=== PATIENT | female | born 1970 | race Caucasian/White ===

== ENCOUNTER 2016-09-09 07:52 | Day surgery (SDC) | payer OTHER ==
[~2016-09-09 07:52] MED LIST: Cyanocobalamin (Vitamin B12) 1,000 MCG/ML SDV IM ONE; Glycopyrrolate 0.2 MG/ML 2 ML SYRINGE IVPUSH ONE; Lactated Ringers 1,000 ML IV ONE; MVI, Adult with Vitamin K 10 ML, Thiamine 200 MG, Chromium/Copper/Mang/Selen/Zn 1 ML in... IV ONE
[2016-09-09] MEDS ORDERED: fentaNYL 100 MCG/2 ML SDV ONE (08:15)
[2016-09-09] MEDS ORDERED: Midazolam 1 MG/ML 2 ML SDV ONE (08:15)
[2016-09-09] MEDS ORDERED: Propofol 200 MG/20 ML SDV ONE (08:15)
[2016-09-09 12:01] VITALS: BP 130/84
--- NOTE | 2016-09-18 15:07 | OR ---
DATE OF PROCEDURE: 09/09/2016 PREOPERATIVE DIAGNOSIS: Dysphasia and epigastric discomfort status post Addie-en-Y gastric bypass. POSTOPERATIVE DIAGNOSIS: Healing marginal ulcer status post Addie-en-Y gastric bypass. OPERATIVE PROCEDURE: Upper GI endoscopy with biopsies of gastric pouch for CLOtest. ANESTHESIA: IV sedation. INDICATION FOR PROCEDURE: A 46-year-old status post Addie-en-Y gastric bypass in 2002. She recently has been noting some dysphagia referable to distal esophagus along with some epigastric discomfort. I had already started omeprazole and then in late July was seen and started on Protonix 40 mg daily per Chanel Seals PA-C. Since that time, the dysphasia has decreased, but she also was having some epigastric discomfort, especially with certain foods. The plan is to proceed with upper GI endoscopy with biopsies as indicated. Potential risks including bleeding and perforation were discussed, and the patient wishes to proceed. DETAILS OF PROCEDURE: The patient was taken to the operating room and placed in a left lateral decubitus position. IV sedation was administered, after which the upper GI endoscope was passed orally through the length of the esophagus, into the gastric pouch, and from there through the gastrojejunostomy roughly 20 cm into the Addie limb. Findings included normal hypopharynx, larynx, upper esophageal sphincter, and esophageal body. At the EG junction, no significant inflammation was noted. However, when passed in the pouch, the patient was noted to have a healing marginal ulcer. This more or less traveled the gastrojejunostomy, extending slightly onto the stomach and then from there more extensively onto the jejunum. This was covered with fibrinous exudate. At this point, no blood or bleeding was seen and no strictures were identified. Overall, this appeared to be a picture of a healing marginal ulcer. Biopsies were obtained from the gastric pouch and sent for CLOtest for H. pylori. Minimal bleeding from the biopsy sites was seen. The scope was then withdrawn, and the procedure concluded. There were no evident complications. The patient will be continued on Protonix 40 mg a day. If the CLOtest is positive, she will be contacted and started on appropriate antibiotic regimen. Otherwise, follow up will be with Chanel Seals, [facility], on 09/24/2016. Edgar Guadarrama MD /[id number]
== END 2016-09-09 11:55 | disposition home or self-care (01) ==
LOC: JP.SDS 07:52
PROVIDERS: ATTEND Surgery
DX: R13.10 Dysphagia, unspecified (principal); K25.9 Gastric ulcer, unspecified as acute or chronic, without hemorrhage or perforation; Z98.890 Other specified postprocedural states; Z98.84 Bariatric surgery status
CPT/HCPCS: 43239; 87081; J2250; J2704; J3010; J3411; J3420; J7120